=== PATIENT | female | born 1955 | race Caucasian/White ===

== ENCOUNTER → 2016-09-05 | Outpatient (CLI) | payer BC ==
[~2016-09-05] MED LIST: CHOL100027 PO; LISI-725 PO; SUMA50TA15 PO
--- NOTE | 2016-09-05 13:36 | EXERCISE STRESS TEST ---
This stress test is being performed because of a chest pain syndrome. The patient exercised for 6 minutes and 12 seconds on a standard Mukesh protocol attaining 7.3 METS and a peak heart rate of 153 beats per minute (95% predicted maximum). The test was terminated due to fatigue. The patient did not experience chest discomfort. Initial blood pressure is 162/90 and this increased to 230/100 at peak exertion. Baseline EKG shows normal sinus rhythm with low voltage throughout. There were no ST segment changes seen throughout exercise and recovery. There were no dysrhythmias. CONCLUSIONS: 1. Normal ECG treadmill test predicting a low probability of significant coronary artery disease. 2. No exercise induced chest pain. 3. No dysrhythmia.
== END | disposition home or self-care (01) ==
LOC: C.CPL 12:20
PROVIDERS: ATTEND Physician Assistant
DX: R07.89 Other chest pain (principal); I10 Essential (primary) hypertension

== ENCOUNTER → 2017-06-15 | Outpatient (CLI) | payer OTHER | LOC: C.PATHSPEC 16:42 | PROVIDERS: ATTEND Dermatology | DX: D18.01 Hemangioma of skin and subcutaneous tissue (principal) ==

== ENCOUNTER → 2017-07-13 | Outpatient (CLI) | payer OTHER | END | disposition home or self-care (01) | LOC: C.PATHSPEC 13:09 | PROVIDERS: ATTEND Dermatology | DX: L98.0 Pyogenic granuloma (principal) ==